=== PATIENT | female | born 1990 | race Caucasian/White ===

== ENCOUNTER 2019-11-04 15:39 | Emergency (ER) | payer OTHER, SELFPAY ==
--- NOTE | 2019-11-04 15:43 | ED.EAR ---
HPI - Ear Problem General Chief complaint: Ear Stated complaint: ear pain Time Seen by Provider: 11/04/19 15:43 Source: patient and RN notes reviewed History of Present Illness HPI Narrative: Patient is a 29-year-old female who presents the urgent care with complaints of sinus congestion and bilateral ear pain. Patient states that she has been symptomatic since they went to [place] approximately 6 days ago. She has not taken anything golw-hwo-scbwyni for her symptoms. States that she is blowing green drainage from her nose . Also reports of a mild scratchy throat. Denies of any fever, chills, nausea, vomiting. No other acute complaints. No acute distress noted. Patient read the plan of care. Related Data Home Medications Medication Instructions Recorded Confirmed dextroamphetamine-amphetamine 30 mg PO BID 04/06/19 04/06/19 [Adderall] alprazolam 2 mg BID 11/04/19 11/04/19 Allergies Allergy/AdvReac Type Severity Reaction Status Date / Time No Known Allergies Allergy Verified 04/06/19 14:31 Review of Systems Review of Systems: Narrative: CONSTITUTIONAL: Denies fever, chills, or sweats. EYES: Denies visual changes, redness, or discharge. ENT: Reports of rhinorrhea, sinus congestion, mild sore throat and bilateral otalgia CARDIOVASCULAR: Denies chest pain, palpitations, or edema. RESPIRATORY: Denies cough or dyspnea. GASTROINTESTINAL: Denies abdominal pain, nausea, vomiting, or diarrhea. GENITOURINARY: Denies dysuria or hematuria. SKIN: Denies rash or itching. MUSCULOSKELETAL: Denies back pain, joint pain, or myalgia. NEUROLOGIC: Denies headache, numbness, or weakness. All other systems reviewed are negative, except as documented in HPI. PMFSH Social History Social History Smoking status: Current every day smoker Gender identity (if verbalized by the patient): Female Comments At the time of my signature, I reviewed and agree with the nursing past medical, surgical, social, and family history. There is no relevant family history pertinent to the patient complaint. Exam Narrative: Exam Narrative: GENERAL: This is a well-nourished, well-developed patient, in no apparent distress. HEAD: normocephalic, atraumatic. EYES: PERRL. Sclera clear/white. Vision is grossly intact. EARS: External ears normal, auditory canals clear and without drainage, mild fluid noted behind bilateral TMs without otitis, bilateral TMs normal without perforation. Hearing grossly intact. NOSE: External nose normal with no obvious nasal discharge, nares without redness, no rhinorrhea. THROAT: Mucous membranes moist, mild erythema noted to posterior pharynx. Moderate postnasal drainage NECK: Neck supple CARDIOVASCULAR: Regular rate and rhythm without murmurs, gallops, or rubs. RESPIRATORY: Clear to auscultation. Breath sounds equal bilaterally. No wheezes, rales, or rhonchi. SKIN: warm, intact with no suspicious lesions or rash, good texture and turgor. NEURO: awake, alert, and oriented to person, place and time. There were no obvious focal neurologic abnormalities. EXTREMITIES: No clubbing, cyanosis, or edema. Course Vital Signs Vital signs: Vital Signs Temperature 97.7 F 11/04/19 15:51 Pulse Rate 79 11/04/19 15:51 Respiratory Rate 16 11/04/19 15:51 Blood Pressure 112/64 11/04/19 15:51 Pulse Oximetry 100 11/04/19 15:51 Temperature 97.7 F 11/04/19 15:51 Pulse Rate 79 11/04/19 15:51 Respiratory Rate 16 11/04/19 15:51 Blood Pressure 112/64 11/04/19 15:51 Pulse Oximetry 100 11/04/19 15:51 Reviewed Medical Decision Making MDM Narrative Medical decision making narrative: Reviewed lab results with the patient. She is aware that strep swab was negative. Educated patient on culture and we will call within 72 hours if culture is positive and antibiotics are necessary. Advised patient to use [id number] allergy medication such as Claritin or Zy
[2019-11-04 15:51] VITALS: BP 112/64; PULSE 79; RESP 16; TEMP 36.5; O2SAT 100
== END 2019-11-04 16:18 | disposition home or self-care (01) ==
PROVIDERS: Emergency Provider Nurse Practitioner Family
DX: H92.03 Otalgia, bilateral (principal); J02.9 Acute pharyngitis, unspecified; F17.200 Nicotine dependence, unspecified, uncomplicated
CPT/HCPCS: 87081; 87880; 99213; G0463

== ENCOUNTER 2020-07-22 13:34 | Emergency (ER) | payer OTHER, SELFPAY ==
[2020-07-22 13:50] VITALS: BP 111/69; PULSE 64; RESP 16; TEMP 36.6; O2SAT 100
--- NOTE | 2020-07-22 13:52 | ED.FEMALEGU ---
HPI - Female Genitourinary General Chief complaint: Urogenital-Female Stated complaint: BURNING URINATION Source: patient Mode of arrival: ambulatory Limitations: no limitations History of Present Illness HPI Narrative: Patient is a 30 year old female who presents complaining of fishy vaginal odor and clearish discharge x 2 weeks. She denies urinary symptoms. She denies exposure or concerns for STDs. She denies abdominal or pelvic pain. She denies all other complaints at this time. Patient has no significant medical history and has not used any agki-cxa-tnomeuy medications at this time. MD elicited complaint: vaginal discharge Related Data Home Medications Medication Instructions Recorded Confirmed dextroamphetamine-amphetamine 30 mg PO BID 04/06/19 04/06/19 [Adderall] alprazolam 2 mg BID 11/04/19 11/04/19 Allergies Allergy/AdvReac Type Severity Reaction Status Date / Time No Known Allergies Allergy Verified 04/06/19 14:31 Review of Systems Review of Systems: Narrative: CONSTITUTIONAL: Denies fever, chills, or sweats. EYES: Denies visual changes, redness, or discharge. ENT: Denies rhinorrhea, congestion, sore throat, or otalgia. CARDIOVASCULAR: Denies chest pain, palpitations, or edema. RESPIRATORY: Denies cough or dyspnea. GASTROINTESTINAL: Denies abdominal pain, nausea, vomiting, or diarrhea. GENITOURINARY: Vaginal odor and discharge SKIN: Denies rash or itching. MUSCULOSKELETAL: Denies back pain, joint pain, or myalgia. NEUROLOGIC: Denies headache, numbness, dizziness, or weakness. PSYCHIATRIC: Denies anxiety or depression. [facility] Social History Social History (Updated 07/22/20 @ 13:58 by NADYA Hernandez) Smoking status: Current every day smoker Tobacco type: cigarettes Alcohol intake: current Alcohol use details: Occasional Substance use: never Living arrangements: with family Gender identity (if verbalized by the patient): Female Comments At the time of signature, I have reviewed and agree with nursing past medical, surgical, social, and family history unless otherwise noted. Please see nursing chart for further information. There is no relevant family history pertinent to the presenting complaint. Exam Narrative: Exam Narrative: GENERAL: Well-appearing, well-nourished, and in no acute distress. HEAD: Normocephalic, atraumatic. EYES: EOMI. No redness or drainage. Conjunctiva are normal. ENT: Mucous membranes pink and moist. CHEST: No respiratory distress. HEART: Regular rate and rhythm. : Patient declines pelvic exam or STD testing EXTREMITIES: Normal range of motion. No edema. SKIN: Warm, dry, no rash. NEURO: No focal deficits. Alert and oriented x3. Gait steady. PSYCH: Normal affect. No signs of depression or anxiety. MDM - Female Genitourinary MDM Narrative Medical decision making narrative: Patient declines pelvic exam or risk for STD testing. Discussed with patient most likely bacterial vaginosis. Patient request prophylactic treatment. Discussed with patient the need to follow-up with her [employer]. Patient is aware if she develops any other symptoms, she is to return or be seen by her [employer] immediately. Patient is stable for discharge home with outpatient follow-up as discussed. Differential Diagnosis Differential diagnosis: Likely urinary tract infection, bacterial vaginosis, trichomoniasis and vaginitis Medical Records Attestation: I reviewed the patient's medical records. Lab Data Attestation: I reviewed the patient's lab results. Critical Care Time Critical Care Time Critical Care Time: No Discharge Plan Discharge Clinical Impression: Bacterial vaginosis Patient Disposition: Home, Self-Care Condition: Stable Instructions: Antibiotic Form, Bacterial Vaginosis (ED) Additional Instructions: Take medication as directed. Do not drink alcohol while taking medication. Follow up with your OBGYN in 2 weeks, sooner if symptoms persist. Pr
== END 2020-07-22 14:26 | disposition home or self-care (01) ==
PROVIDERS: Emergency Provider Nurse Practitioner
DX: N76.0 Acute vaginitis (principal); F17.210 Nicotine dependence, cigarettes, uncomplicated
CPT/HCPCS: 81003; 99213; G0463

== ENCOUNTER 2021-04-05 11:09 | Emergency (ER) | payer OTHER, SELFPAY ==
--- NOTE | 2021-04-05 11:14 | ED.URI ---
HPI - URI/Sore Throat General Chief Complaint: Upper Respiratory Infection Stated Complaint: Sore throat, cough Time Seen by Provider: 04/05/21 11:14 Source: patient and RN notes reviewed History of Present Illness HPI Narrative: Patient is a 31-year-old female who presents the urgent care with complaints of a cough and sore throat for the last 5 days. Denies of any fever, chills, nausea, vomiting, shortness of breath. States that she has not taken anything jptj-orh-jkaigzy for her symptoms. States that the symptoms do resolve as the day goes on. Denies of any known exposures to Covid, flu or strep. No other acute complaints. No acute distress noted. Patient aware of the plan of care. Some parts of this dictation were generated by voice recognition software and may contain typographical and/or grammatical inaccuracies. Related Data Allergies Allergy/AdvReac Type Severity Reaction Status Date / Time No Known Allergies Allergy Verified 04/06/19 14:31 Review of Systems Review of Systems: CONSTITUTIONAL: Denies fever, chills, or sweats. EYES: Denies visual changes, redness, or discharge. ENT: Denies rhinorrhea, congestion, otalgia. Reports of sore throat CARDIOVASCULAR: Denies chest pain, palpitations, or edema. RESPIRATORY: Reports a mild nonproductive cough without dyspnea GASTROINTESTINAL: Denies abdominal pain, nausea, vomiting, or diarrhea. GENITOURINARY: Denies dysuria or hematuria. SKIN: Denies rash or itching. MUSCULOSKELETAL: Denies back pain, joint pain, or myalgia. NEUROLOGIC: Denies headache, numbness, or weakness. All other systems reviewed are negative, except as documented in HPI. PMFSH Social History Social History (Updated 07/22/20 @ 13:58 by NADYA Hernandez) Smoking status: Current every day smoker Tobacco type: cigarettes Alcohol intake: current Alcohol use details: Occasional Substance use: never Gender identity (if verbalized by the patient): Female Comments At the time of my signature, I reviewed and agree with the nursing past medical, surgical, social, and family history. There is no relevant family history pertinent to the patient complaint. Exam Narrative: GENERAL: This is a well-nourished, well-developed patient, in no apparent distress. HEAD: normocephalic, atraumatic. EYES: PERRL. Sclera clear/white. Vision is grossly intact. EARS: External ears normal, auditory canals clear and without drainage, TMs normal without perforation. Hearing grossly intact. NOSE: External nose normal with no obvious nasal discharge, nares without redness, no rhinorrhea. THROAT: Mucous membranes moist, posterior pharynx clear. Mild to moderate postnasal drainage NECK: Neck supple, non-tender without lymphadenopathy, masses or thyromegaly. CARDIOVASCULAR: Regular rate and rhythm without murmurs, gallops, or rubs. RESPIRATORY: Clear to auscultation. Breath sounds equal bilaterally. No wheezes, rales, or rhonchi. SKIN: warm, intact with no suspicious lesions or rash, good texture and turgor. NEURO: awake, alert, and oriented to person, place and time. There were no obvious focal neurologic abnormalities. EXTREMITIES: No clubbing, cyanosis, or edema. Course Course Level of Care: Express Care Visit Vital Signs Vital signs: Vital Signs Temperature 97.9 F 04/05/21 11:21 Pulse Rate 72 04/05/21 11:21 Respiratory Rate 16 04/05/21 11:21 Blood Pressure 111/76 04/05/21 11:21 Pulse Oximetry 100 04/05/21 11:21 Temperature 97.9 F 04/05/21 11:21 Pulse Rate 72 04/05/21 11:21 Respiratory Rate 16 04/05/21 11:21 Blood Pressure 111/76 04/05/21 11:21 Pulse Oximetry 100 04/05/21 11:21 Reviewed MDM - URI/Sore Throat MDM Narrative Medical decision making narrative: Advised the patient to use an pqpq-fjs-opgtuwd antihistamine such as Claritin/Zyrtec/Benadryl prior to bedtime. Use Flonase nasal spray. Use Tylenol/ibuprofen as needed. If you develop any increase in symptoms
[2021-04-05 11:21] VITALS: BP 111/76; PULSE 72; RESP 16; TEMP 36.6; O2SAT 100
== END 2021-04-05 11:50 | disposition home or self-care (01) ==
PROVIDERS: Emergency Provider Nurse Practitioner Family
DX: J00 Acute nasopharyngitis [common cold] (principal); F17.210 Nicotine dependence, cigarettes, uncomplicated
CPT/HCPCS: 99211; G0463

== ENCOUNTER 2023-01-09 10:25 | Outpatient (CLI) | payer OTHER, SELFPAY ==
[2023-01-09 10:46] LABS: Hematocrit 38.9 % (37.0-47.0); Hemoglobin 13.2 g/dL (12.0-15.0)
[2023-01-09 10:58] LABS: Partial Thromboplastin Time 29.2 SECONDS (22.3-36.8); Prothrombin Time 13.3 Seconds (11.1-14.7)
== END 2023-01-09 10:26 | disposition home or self-care (01) ==
PROVIDERS: Anesthesiology; Visit Provider Obstetrics & Gynecology
DX: Z01.818 Encounter for other preprocedural examination (principal); D68.00 Von Willebrand disease, unspecified; Z86.2 Personal history of diseases of the blood and blood-forming organs and certain disorders involving the immune mechanism
CPT/HCPCS: 36415; 85014; 85018; 85610; 85730

== ENCOUNTER 2023-01-16 01:42 | Day surgery (SDC) | payer OTHER, SELFPAY ==
[2023-01-02 14:25] VITALS: BMI 25.8
--- NOTE | 2023-01-02 14:51 | PC.NURSE ---
Report to the Outpatient Waiting Room, entrance under the green pavilion located off [facility], at 0600 on 01-16-23. Planned Procedure Time: 0730. Time changes happen often and if your time is changed the preop area will call you the afternoon before. - You and your visitor will be asked to self-screen and do not enter if you have any COVID symptoms. - A mask is optional within the hospital at this time. Patients may have clear liquids (water, carbonated beverages, clear teas, apple juice) until 3 hours prior to surgery with a maximum of 20 ounces. 0430 - No food from midnight until time of surgery - Infants may have breast milk until 4 hours before surgery, formula 6 hours prior to surgery. - Children will be allowed to drink immediately following surgery. If applicable, please bring a bottle or sippy cup to assist with drinking. Juice, water, soda, and popsicles are readily available. For infants on formula, please bring formula the day of surgery. Pacifiers are allowed. Take the following medications with a SIP of water the morning of surgery: Xanax, Adderall DO NOT STOP ANY OF YOUR OTHER PRESCRIPTION MEDICATIONS PRIOR TO SURGERY ?EXCEPT THE FOLLOWING Medications to discontinue per physician: N/A Please no make-up, nail georgian, hairspray, perfume, deodorant, or body powder the day of surgery. No jewelry (including any body piercings) or valuables the day of surgery, leave them at home. Please take a shower or bath the night before, or the morning of, surgery with an antibacterial soap. Wear comfortable, loose fitting clothing. Children are encouraged to wear pajamas. - Jewelry must be removed prior to entering the operating room. Rings and piercings that are not removed may be cut off. - The hospital will not accept responsibility for valuables. - Please leave all valuables, including medications, at home the day of surgery. If you are going home after surgery, a licensed fire truck driver must drive you home. - NO public transportation without another adult if you receive anesthesia. - We recommend that an adult stay with you for 24 hours following discharge. - We also recommend that you do not drive, make important decision, drink alcoholic beverages, or take any drugs that were not prescribed by your health care provider for at least 24 hours after your discharge time. For Pediatric surgeries, we recommend two adults accompany the child home. Follow any additional instructions given to you from your surgeon. If you or anyone in your household have experienced Covid symptoms in the past week, please notify your surgeon or the nurse liaison at the phone number below for possible testing. Telephone instructions given to Roslyn Dias and asked if any additional questions and then verbalized understanding. Patient advised to call surgeon office or pre surgery nurse liaison [phone] if any additional questions.
--- NOTE | 2023-01-15 10:51 | PM.IMHP ---
H&P: HPI History of Present Illness Date/Time: 01/15/23 10:51 Chief Complaint: request for sterilization Narrative: Roslyn is a 32yo P2014 who presents for scheduled surgery. She has a normal pap 10/2019. She has a Mirena IUD in place since 05/2018 with the threads known to have been missing (normal US 10/19). She reports irregular bleeding; light to moderate in flow with cramping (new over the last few months). She reports a lot of foul smelling discharge over the last 1-2 months as well. She does have VWD and is worried about bleeding (has never had blood transfusion or heavy bleeding with deliveries or tooth extractions). She no longer desires future fertility. Review of Systems Constitutional: Constitutional: Denies chills, Denies fever(s) and Denies headache(s) Eyes: Eyes: Denies change in vision ENT: Denies dizziness and Denies headache(s) Cardiovascular: Cardiovascular: Denies chest pain and Denies dyspnea Respiratory: Respiratory: Denies cough and Denies dyspnea Gastrointestinal: Gastrointestinal: Denies abdominal pain and Denies change in stool character Genitourinary: Genitourinary: Reports abnormal menses, Denies pelvic pain, Denies vaginal discharge, Denies vaginal odor and Denies vaginal pruritus Neurologic: Denies dizziness and Denies headache(s) Psychiatric: Psychiatric: Denies anxiety and Denies depression PMFSH Past Medical History Medical History ADHD Anxiety Encounter for IUD insertion 06/16/09 Mirena insertion Mirena insertion 05/14/18 Mirena insertion Encounter for IUD removal 01/31/13 Mirena removal 12/21/17 Mirena removal Herpes Vaginal delivery 03/13/08 no complications Sean 12/05/14 no complications Dixie Von Willebrand disease Surgical History Surgical History S/P dilation and curettage 08/06/2013 suction d&C missed AB Family History Family History Father Malignant neoplastic disease Sibling Heart disease brother Grandparent Breast cancer maternal grandmother Other Cerebrovascular accident Social History Social History Smoking packs per day: 1 Smoking cigarettes per day: 20.0 Years smoked: 10 Smoking pack-years: 10.00 Smoking status: Former smoker Tobacco type: cigarettes and e-cigarettes/vaping Second hand tobacco smoke exposure: No Smoking end date: 04/03/20 Additional smoking assessment comments: Still vapes with nicotine Alcohol intake: never Substance use: current Substance use type: marijuana Living arrangements: with family 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 Gender identity (if verbalized by the patient): Female Sexual Orientation (if Verbalized by the Patient): Straight or Heterosexual Spiritual care concerns: No Meds Home Medications and Allergies Home Medications Medication Instructions Recorded Confirmed Type alprazolam 1 mg tablet (Xanax) 1 mg PO BID 09/13/21 01/02/23 History dextroamphetamine-amphetamine 20 30 mg PO DAILY 09/13/21 01/02/23 History mg tablet (Adderall) valacyclovir 500 mg tablet 500 mg PO Q12H PRN cold sores 01/02/23 01/02/23 History (Valtrex) Allergies Allergy/AdvReac Type Severity Reaction Status Date / Time nitrofurantoin Allergy Mild Rash Verified 01/02/23 15:02 [From Macrobid] Exam Const: General: cooperative, healthy appearing, comfortable and no acute distress Orientation/consciousness: patient oriented x3 Resp: Effort & Inspection: normal respiratory effort Cardio: Rate: regular rate GI: Inspection: normal to inspection GI Palp: No abdominal tenderness and Yes Soft to palpation : Other: deferred to OR Skin: General skin exam: normal color Ne
[2023-01-16] VITALS (8 sets, daily range): BP systolic 97–117; BP diastolic 40–73; PULSE 55–63; RESP 14–19; TEMP 36.4–36.7; O2SAT 99–100
[2023-01-16] MEDS: LACTATED RINGERS 1,000 ML 30 ML IV CONT (06:45)
[2023-01-16] MEDS: KETOROLAC 15 MG/ML VIAL (*BKC) IV PUSH (06:45)
[2023-01-16] MEDS: ACETAMINOPHEN 500 MG TABLET 1000 MG PO (06:45)
--- NOTE | 2023-01-16 07:12 | WPDANESEPPF ---
Anes - Initial Pre Proc Eval Procedure: Operation Date: 01/16/23 07:30 Proposed Procedures p Laparoscopic Bilateral Salpingectomy, Hysteroscopy, Dilatation and Curettage, Ara Endometrial Ablation, Intrauterine Device Removal - Dione Hardy MD Date/Time: 01/16/23 07:12 Surgeon: Dione Hardy MD Pre Op Diagnosis: desire sterilization,abn uterine bleed, retain IUD Patient Data Age: 32 Gender: F Height: 1.68 m Weight: 72.57 kg Allergies Allergy/AdvReac Type Severity Reaction Status Date / Time nitrofurantoin Allergy Mild Rash Verified 01/02/23 15:02 [From Macrobid] Home Medications Medication Instructions Recorded Confirmed Type alprazolam 1 mg tablet (Xanax) 1 mg PO BID 09/13/21 01/02/23 History dextroamphetamine-amphetamine 20 30 mg PO DAILY 09/13/21 01/02/23 History mg tablet (Adderall) valacyclovir 500 mg tablet 500 mg PO Q12H PRN cold sores 01/02/23 01/02/23 History (Valtrex) Patient hx anesthesia problems: none Family hx anesthesia problems: none Results Review: All pre-operative results and documents have been reviewed as part of the pre-operative evaluation. [facility] Past Medical History Medical History ADHD Anxiety Encounter for IUD insertion 06/16/09 Mirena insertion 1103/15 Mirena insertion 05/14/18 Mirena insertion Encounter for IUD removal 01/31/13 Mirena removal 12/21/17 Mirena removal Herpes Vaginal delivery 03/13/08 no complications Sean 12/05/14 no complications Dixie Von Willebrand disease Surgical History Surgical History S/P dilation and curettage 08/06/2013 suction d&C missed AB Family History Family History Father Malignant neoplastic disease Sibling Heart disease brother Grandparent Breast cancer maternal grandmother Other Cerebrovascular accident Social History Social History Smoking packs per day: 1 Smoking cigarettes per day: 20.0 Years smoked: 10 Smoking pack-years: 10.00 Smoking status: Former smoker Tobacco type: cigarettes and e-cigarettes/vaping Second hand tobacco smoke exposure: No Smoking end date: 04/03/20 Additional smoking assessment comments: Still vapes with nicotine Alcohol intake: never Substance use: current Substance use type: marijuana Living arrangements: with family 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 Gender identity (if verbalized by the patient): Female Sexual Orientation (if Verbalized by the Patient): Straight or Heterosexual Spiritual care concerns: No Anes - Eval Final PreProcedure Day of Procedure 01/16/23 07:12 Patient weight: normal Heart: regular rate and rhythm Lungs: clear to auscultation Airway: Mallampati scale class II Neurological: alert and oriented Last oral intake: >/= 8 hours ASA classification: II Emergent: no Anesthetic plan: proceed Anesthesia type and monitoring: general ETT and standard monitoring Results Review: All pre-operative results and documents have been reviewed as part of the pre-operative evaluation. Informed Consent: The patient's anesthetic plan and its attendant risks and benefits were discussed with the patient/family/POA. Questions were solicited and answers provided to the satisfaction of the patient/family/POA.
--- NOTE | 2023-01-16 07:15 | WPDHPUPDATE1 ---
History and Physical Update Update Date/Time: 01/16/23 07:15 History and Physical has been reviewed, including an updated exam of the patient. There are NO changes in the patient's condition. Risks, benefits, and alternatives have been discussed and questions answered. Patient agrees to proceed with laparoscopic bilateral salpingectomy, hysteroscopic IUD removal, D&C, and endometrial ablation.
--- NOTE | 2023-01-16 07:35 | SUR.OPER ---
noted prior to intubation few small chips upper front teeth Dr Leiva present and all staff aware.
[2023-01-16] MEDS: LIDOCAINE HCL 1% LOCAL INJ 20 ML VIAL INFILTRATE (08:15)
--- NOTE | 2023-01-16 08:49 | W.PM.PROC2 ---
Procedure Note - Detailed Date of Procedure 01/16/23 Pre-op Diagnosis desire sterilization,abn uterine bleed, retain IUD Post-op Diagnosis Same Procedure Performed Laparoscopic bilateral salpingectomy, hysteroscopy, IUD removal, D&C Surgeon Dione Hardy MD Doctor Of Osteopathy [facility] Anesthesia General and Local (20cc of 1% lidocaine) Findings Uterus sounded to 10cm; cervix 5cm. IUD retained with strings also in the uterus (removed in whole and discarded), normal uterus, fallopian tubes, and ovaries. On last swipe of D&C, it was noted that there was no longer resistance; HSC was performed and uterine perforation was noted-- laparoscopy was once again performed and 1cm defect in posterior uterine wall was noted and no bleeding. Description of Procedure Roslyn was taken to the operating room where she was placed under general endotracheal anesthesia without complications. She was then prepped and draped in the usual sterile fashion in the dorsal lithotomy position with her legs in low Pedro stirrups and her arms tucked at her side with a strap over her chest. A time-out was performed and no preoperative antibiotics were indicated. My attention was turned down below where her bladder was drained via straight catheterization. A bivalve speculum was then placed within the vagina where the cervix was easily identified. The anterior lip of the cervix was grasped with a single-tooth tenaculum, the uterus was sounded, and a diagnostic uterine manipulator was placed without complications. My gloves were changed and my attention was turned to her abdomen. An umbilical incision was made, and a 5 mm trocar was placed under direct visualization without complications. Once intra-abdominal placement was confirmed the abdomen was insufflated with carbon dioxide gas. She was then placed in Trendelenburg and two additional 5 mm ports were placed in the left and right lower quadrants under direct visualization without complications. The above findings were noted. The left fallopian tube was then elevated and the mesosalpinx was serially clamped, coagulated, transected using the LigaSure device until the proximal end of the fallopian tube was reached. The proximal end of the fallopian tube was cross clamped, coagulated and transected. The tube was then removed from the abdomen. The same procedure was then performed on the right side without any complications. Good hemostasis was noted. All instruments were removed from the abdomen. The insufflation was released and the trocars were removed. The 3 laparoscopic incision sites were reapproximated using 4-0 Monocryl and covered with Dermabond. The incisions were then infiltrated using 1% lidocaine. The uterine manipulator was removed. A bivalve speculum was placed within the vagina where the cervix was easily identified. The anterior lip of the cervix was grasped with a single-tooth tenaculum. The cervix was then serially dilated to allow for the hysteroscope. The hysteroscope was advanced into the uterine cavity with the above findings noted. Using hysteroscopic alligator forceps the IUD was removed without complications. A curettage was then performed until a good uterine cry was felt throughout the uterus. With my last swipe of the D&C; no resistance was palpated and I was concerned for perforation. The curette was immediately removed and the hysteroscope was once again advanced into the uterine cavity where a perforation was noted. The hysteroscope was removed. A sponge on a stick was placed within the vagina. My gloves were changed and my attention was turned to her abdomen again. The umbilical incision was opened again. A 5 mm trocar was placed under direct visualization without complications. Once intra-abdominal placement was confirmed the abdomen was insufflated with carbon dioxide gas. She was then placed in Trendelenburg and an additional 5 mm ports was placed in the left lower quadrant under direct visualization without
[2023-01-16] MEDS: ceFAZolin SODIUM 1 GM VIAL 2 GM IV PUSH (09:10)
[2023-01-16] MEDS: fentaNYL CITRATE INJ (*CRX) 100 MCG/2 ML VIAL 25 MCG IV PUSH ×4 (09:14→09:31)
[2023-01-16] MEDS: oxyCODONE HCL (*CRX) 5 MG TAB IR PO (10:07)
== END 2023-01-16 10:56 | disposition home or self-care (01) ==
PROVIDERS: Visit Provider Obstetrics & Gynecology
PROC: 0UDB8ZZ Extraction of Endometrium, Via Natural or Artificial Opening Endoscopic (ICD-10-PCS; CPT 58558; principal; 2023-01-16 07:30)
DX: Z30.2 Encounter for sterilization (principal); T83.32XA Displacement of intrauterine contraceptive device, initial encounter; N99.71 Accidental puncture and laceration of a genitourinary system organ or structure during a genitourinary system procedure; N93.9 Abnormal uterine and vaginal bleeding, unspecified; F90.9 Attention-deficit hyperactivity disorder, unspecified type; F41.9 Anxiety disorder, unspecified; D68.00 Von Willebrand disease, unspecified; B00.9 Herpesviral infection, unspecified; F17.290 Nicotine dependence, other tobacco product, uncomplicated; F12.90 Cannabis use, unspecified, uncomplicated
CPT/HCPCS: 58661; 58558; 58579; 88302; 88305; A9270; J0690; J1100; J1885; J2250; J2405; J2704; J3010; J7030; J7120